=== PATIENT | female | born 1985 | race Caucasian/White ===

== ENCOUNTER → 2018-10-24 | Outpatient (CLI) | payer OTHER ==
[~2018-10-24] MED LIST: IBUP800 PO; Verotin-Gr Cap1 EACH PO
[2018-10-26 14:08] LABS: HPV 16 Negative (Negative); HPV 18 Negative (Negative); HPV OTHER HR TYPES Negative (Negative)
== END ==
LOC: LAB 14:10 → LAB SHORT 14:10
PROVIDERS: Obstetrics & Gynecology
DX: Z01.419 Encounter for gynecological examination (general) (routine) without abnormal findings (principal)
CPT/HCPCS: 87624; G0123

== ENCOUNTER → 2019-08-31 | Outpatient (CLI) | payer OTHER ==
[~2019-08-31] MED LIST changes: +COLACE100 MG PO; +IBU800 M1 PO
== END | disposition home or self-care (01) ==
LOC: LAB 11:30 → LAB SHORT 11:30
DX: Z33.1 Pregnant state, incidental (principal)
CPT/HCPCS: 87081; 87653

== ENCOUNTER 2019-09-16 12:54 | Inpatient (IN) | payer OTHER ==
[~2019-09-16] VITALS: Ht 165.1 cm; Wt 90.9 kg
[~2019-09-16 12:54] MED LIST changes: -COLACE100 MG PO; -IBU800 M1 PO
[2019-09-16 15:53] LABS: BASOPHILS ABSOLUTE AUTO 0.02 K/mm3 (0.00-0.23); BASOPHILS PERCENT AUTO 0 % (0-2); EOSINOPHILS ABSOLUTE AUTO 0.05 K/mm3 (0.00-0.68); EOSINOPHILS PERCENT AUTO 1 % (0-6); Hematocrit 37.6 % (33.0-51.0); Hemoglobin 12.4 g/dL (11.5-16.0); IMMATURE GRAN ABSOLUTE AUTO 0.02 K/mm3 (0.00-0.10); IMMATURE GRAN PERCENT AUTO 0 % (0-1); LYMPHOCYTES ABSOLUTE AUTO 1.45 K/mm3 (0.84-5.20); LYMPHOCYTES PERCENT AUTO 17 % (21-46); MONOCYTES PERCENT AUTO 6 % (4-13); Mean Corpuscular HGB 29.1 pg (26.0-34.0); Mean Corpuscular Volume 88 fL (80-100); Mean Platelet Volume 9.9 fL (9.1-12.4); NEUTROPHILS ABSOLUTE AUTO 6.44 K/mm3 (1.96-9.15); NEUTROPHILS PERCENT AUTO 76 % (41-73); Platelet Count 171 K/mm3 (150-400); RDW Coefficient Variation 13.1 % (11.7-14.2); RDW Standard Deviation 41.7 fL (35.1-46.3); Red Blood Cell Count 4.26 M/mm3 (3.80-5.20); White Blood Cell Count 8.48 K/mm3 (4.00-11.30)
[2019-09-17] MEDS ORDERED: COLACE100 MG PO (08:56)
[2019-09-17] MEDS ORDERED: IBU800 M1 PO (08:56)
--- NOTE | 2019-09-17 09:45 | NUR ---
DISCHARGE INSTRUCTIONS REVIEWED AND SIGNED. ALL QUESTIONS ANSWERED. PT DISCHARGED TO HOME.
== END 2019-09-17 09:43 | disposition home or self-care (01) | DRG 807 ==
LOC: BC 12:54 → OBS 12:54 → BC 15:24 → OBS 15:24 → BC 21:55
PROVIDERS: ADMIT Obstetrics & Gynecology
PROC: 10E0XZZ Delivery of Products of Conception, External Approach (ICD-10-PCS; principal; 2019-09-16)
PROC: 0KQM0ZZ Repair Perineum Muscle, Open Approach (ICD-10-PCS; 2019-09-16)
PROC: 6A550ZT Pheresis of Cord Blood Stem Cells, Single (ICD-10-PCS; 2019-09-16)
DX: O70.1 Second degree perineal laceration during delivery (principal); Z37.0 Single live birth; Z3A.38 38 weeks gestation of pregnancy; O69.81X0 Labor and delivery complicated by cord around neck, without compression, not applicable or unspecified
CPT/HCPCS: 36415; 51702; 85025; 86850; 86900; 86901; 99213; J1885; J2001; J2590; J3010; J7120

== ENCOUNTER 2023-01-08 16:10 | Emergency (ER) | payer OTHER ==
[~2023-01-08] VITALS: Ht 165.1 cm; Wt 81.7 kg
[~2023-01-08 16:10] MED LIST changes: +AMOCLA875 PO; +COLACE100 MG PO; +IBU800 M1 PO
[2023-01-08 16:55] VITALS: BP 131/76
== END 2023-01-08 17:21 | disposition home or self-care (01) ==
LOC: ER 16:10
DX: Z48.02 Encounter for removal of sutures (principal); Z88.5 Allergy status to narcotic agent
CPT/HCPCS: 99281

== ENCOUNTER 2023-07-06 20:03 | Inpatient (IN) | payer OTHER ==
[~2023-07-06] VITALS: Ht 165.1 cm; Wt 89.1 kg
[2023-07-06] MEDS ORDERED: MELA3 PO (21:05)
[2023-07-06 21:22] LABS: BASOPHILS ABSOLUTE AUTO 0.03 K/mm3 (0.00-0.23); BASOPHILS PERCENT AUTO 0 % (0-2); EOSINOPHILS ABSOLUTE AUTO 0.06 K/mm3 (0.00-0.68); EOSINOPHILS PERCENT AUTO 1 % (0-6); Hematocrit 37.2 % (33.0-51.0); Hemoglobin 12.5 g/dL (11.5-16.0); IMMATURE GRAN ABSOLUTE AUTO 0.02 K/mm3 (0.00-0.10); IMMATURE GRAN PERCENT AUTO 0 % (0-1); LYMPHOCYTES ABSOLUTE AUTO 1.56 K/mm3 (0.84-5.20); LYMPHOCYTES PERCENT AUTO 23 % (21-46); MONOCYTES ABSOLUTE AUTO 0.45 K/mm3 (0.16-1.47); MONOCYTES PERCENT AUTO 7 % (4-13); Mean Corpuscular HGB 29.3 pg (26.0-34.0); Mean Corpuscular HGB Conc 33.6 g/dL (31.5-36.5); Mean Corpuscular Volume 87 fL (80-100); Mean Platelet Volume 9.4 fL (9.1-12.4); NEUTROPHILS ABSOLUTE AUTO 4.62 K/mm3 (1.96-9.15); NEUTROPHILS PERCENT AUTO 69 % (41-73); Platelet Count 203 K/mm3 (150-400); RDW Coefficient Variation 12.4 % (11.7-14.2); RDW Standard Deviation 39.4 fL (35.1-46.3); Red Blood Cell Count 4.26 M/mm3 (3.80-5.20); White Blood Cell Count 6.74 K/mm3 (4.00-11.30)
[2023-07-06 21:39] VITALS: BP 126/64
[2023-07-06 21:54] VITALS: BP 104/53
[2023-07-06 22:09] VITALS: BP 104/58
[2023-07-06 22:23] VITALS: BP 113/64
[2023-07-06 22:38] VITALS: BP 105/50
[2023-07-07] VITALS (13 sets, daily range): BP systolic 111–125; BP diastolic 52–71
[2023-07-07] MEDS ORDERED: IBUP800 PO (15:44)
--- NOTE | 2023-07-07 18:22 | NUR ---
Spiritual Care Visit. Pt. and spouse were preparing to discharge when this valet parking attendant arrived. This valet parking attendant is known to the family from the community. Facilitated a review of the last 48 hrs. Listened with empathy and a calming presence. Pt. and spouse display evidence of both peace and concern for going home. Pastoral support is given, and this valet parking attendant walked them to the parking lot. Family verbalized gratitude for the spiritual care visit.
--- NOTE | 2023-07-07 18:24 | NUR ---
PT DC'D FROM HOSPITAL WITH . IV DC'D. NO QUESTIONS OR CONCERNS AT THIS TIME. ADVISED TO CALL WITH ANY CONCERNS.
== END 2023-07-07 18:20 | disposition home or self-care (01) | DRG 807 ==
LOC: OBS 20:03 → BC 20:05 → OBS 20:09 → BC 20:10
PROVIDERS: ADMIT Obstetrics & Gynecology
PROC: 10E0XZZ Delivery of Products of Conception, External Approach (ICD-10-PCS; principal; 2023-07-07)
PROC: 3E0DXGC Introduction of Other Therapeutic Substance into Mouth and Pharynx, External Approach (ICD-10-PCS; 2023-07-07)
DX: O36.4XX0 Maternal care for intrauterine death, not applicable or unspecified (principal); Z37.1 Single stillbirth; Z88.5 Allergy status to narcotic agent; Z79.2 Long term (current) use of antibiotics; Z79.899 Other long term (current) drug therapy; Z3A.29 29 weeks gestation of pregnancy
CPT/HCPCS: 36415; 85025; 86850; 86900; 86901; 86923; A9270; J2590; J3010; J7120